=== PATIENT | female | born 1945 | race Two or more races ===

== ENCOUNTER 2022-02-14 14:29 | Inpatient (IN) | payer OTHER ==
[~2022-02-14] VITALS: Ht 157.5 cm; Wt 54.4 kg
[2022-02-14] MEDS ORDERED: ADALAT CC30 MG PO (14:31)
[2022-02-14] MEDS ORDERED: TOPROL XL100 M1 PO (14:31)
[2022-02-14] MEDS ORDERED: ARICEPT5 MG PO (14:32)
[2022-02-14] MEDS ORDERED: CIPRO500 MG PO (19:47)
[2022-02-14] MEDS ORDERED: LEVSIN/SL0.125 MG SL (19:47)
[2022-02-14] MEDS ORDERED: PEPCID AC20 MG PO (19:47)
[2022-02-20] MEDS ORDERED: GABAPENTIN400 MG (08:51)
[2022-02-20] MEDS ORDERED: ALPRAZOLAM0.5 MG (08:51)
[2022-02-20] MEDS ORDERED: ALENDRONATE SOD70 MG (08:51)
== END 2022-02-23 11:36 | disposition home or self-care (01) | DRG 414 ==
LOC: ER 14:29 → SURH 02-15 11:44 → ICU 02-15 11:44 → SURH 02-16 19:48 → ICUI 02-18 02:13 → ICU 02-18 02:17 → SURG 02-21 19:55
PROVIDERS: ADMIT Internal Medicine; ATTEND Internal Medicine
PROC: B24BZZZ Ultrasonography of Heart with Aorta (ICD-10-PCS; 2022-02-16)
PROC: 0FT40ZZ Resection of Gallbladder, Open Approach (ICD-10-PCS; principal; 2022-02-18)
PROC: 0FJ44ZZ Inspection of Gallbladder, Percutaneous Endoscopic Approach (ICD-10-PCS; 2022-02-18)
PROC: BF522Z0 Other Imaging of Gallbladder using Fluorescing Agent, Intraoperative (ICD-10-PCS; 2022-02-18)
PROC: 0W9J8ZZ Drainage of Pelvic Cavity, Via Natural or Artificial Opening Endoscopic (ICD-10-PCS; 2022-02-18)
PROC: 30233N1 Transfusion of Nonautologous Red Blood Cells into Peripheral Vein, Percutaneous Approach (ICD-10-PCS; 2022-02-18)
PROC: 0BH17EZ Insertion of Endotracheal Airway into Trachea, Via Natural or Artificial Opening (ICD-10-PCS; 2022-02-18)
PROC: 5A1935Z Respiratory Ventilation, Less than 24 Consecutive Hours (ICD-10-PCS; 2022-02-18)
PROC: 4A12X4Z Monitoring of Cardiac Electrical Activity, External Approach (ICD-10-PCS; 2022-02-22)
DX: K80.00 Calculus of gallbladder with acute cholecystitis without obstruction (principal); K65.3 Choleperitonitis; J95.821 Acute postprocedural respiratory failure; K82.A2 Perforation of gallbladder in cholecystitis; D62 Acute posthemorrhagic anemia; R10.11 Right upper quadrant pain; K57.30 Diverticulosis of large intestine without perforation or abscess without bleeding; I10 Essential (primary) hypertension; Z20.822 Contact with and (suspected) exposure to COVID-19; Z53.31 Laparoscopic surgical procedure converted to open procedure